=== PATIENT | male | born 1950 | race Two or more races ===

== ENCOUNTER 2024-01-10 17:11 | Inpatient (IN) | payer MEDICARE, MEDICAID ==
[~2024-01-10] VITALS: Ht 177.8 cm; Wt 68.2 kg
[~2024-01-10 17:11] MED LIST: ATOR40TA28 PO; BISA-151 PO; DOCU-385 PO; ERGO500093 PO; FAMO20 PO; HEPA500018 SQ; LEVO750T68 PO; METO25 PO; OLAN5TAB52 PO; POLY17PO47 PO; TAMS0.4C94 PO; VALP250C48 PO
[2024-01-10] MEDS ORDERED: BISA10SU11 PR (19:14)
[2024-01-10] MEDS ORDERED: NA P133E4 PR (19:14)
[2024-01-10] MEDS ORDERED: MAGN-169 PO (19:14)
[2024-01-10] MEDS ORDERED: ACET-2247 PO (19:14)
[2024-01-10] MEDS ORDERED: CHOL25TA4 PO (19:14)
[2024-01-10 19:48] LABS: BASOPHILS % (AUTO) 0.8 % (0.0-2.0); EOSINOPHILS % (AUTO) 2.4 % (1.0-6.0); HEMATOCRIT 40.2 % (41-53); HEMOGLOBIN 13.7 g/dL (13.5-17.5); LYMPHOCYTES # (AUTO) 2.6 K/uL (1.0-4.8); LYMPHOCYTES % (AUTO) 34.1 % (22.0-44.0); MEAN CORPUSCULAR HEMOGLOBIN 31.5 pg (26.0-34.0); MEAN CORPUSCULAR HGB CONC 34.1 G/dL (31.0-37.0); MEAN CORPUSCULAR VOLUME 92 fL (80-100); MONOCYTES # (AUTO) 0.6 K/uL (0.1-1.0); MONOCYTES % (AUTO) 8.2 % (2.0-9.0); NEUTROPHILS # (AUTO) 4.2 K/uL (1.8-7.7); NEUTROPHILS % (AUTO) 54.5 % (40.0-70.0); PLATELET COUNT (AUTO) 265 K/uL (150-450); RED BLOOD CELL COUNT(AUTO) 4.35 MIL/uL (4.50-5.90); RED CELL DISTRIBUTION WIDTH 14.8 % (11.5-14.5); WHITE BLOOD COUNT (AUTO) 7.7 K/uL (4.5-11.0)
[2024-01-10 19:56] LABS: ANION GAP 12 mmol/L (8-16); CALCIUM, TOTAL 8.9 mg/dL (8.8-10.5); CARBON DIOXIDE 25 mmol/L (22-29); CHLORIDE 104 mmol/L (98-107); CREATININE 1.03 mg/dL (0.60-1.30); GLOMERULAR FILTR. RATE CALC > 60 mL/min (>60); GLUCOSE,RANDOM 108 mg/dL (70-110); POTASSIUM 3.7 mmol/L (3.5-5.1); SODIUM SERUM 141 mmol/L (136-145); UREA NITROGEN, BLOOD 30 mg/dL (7-18)
[2024-01-10 23:06] LABS: APPEARANCE,URINE TURBID (CLEAR); BILIRUBIN,URINE NEGATIVE (NEGATIVE); COLOR,URINE YELLOW (YELLOW); GLUCOSE, URINE (UA) NEGATIVE (NEGATIVE); KETONES,URINE NEGATIVE (NEGATIVE); LEUKOCYTE ESTERASE ,URINE LARGE (NEGATIVE); OCCULT BLOOD,URINE LARGE (NEGATIVE); PROTEIN,URINE 100-200,SEE CONFIRM mg/dL (NEGATIVE); SPECIFIC GRAVITIY, URINE 1.019 (1.003-1.030); UROBILINOGEN,URINE <=1.0 mg/dL (<=1.0)
[2024-01-10 23:18] LABS: BACTERIA,URINE Few /HPF (None Seen); NITRATE,URINE NEGATIVE (NEGATIVE); SQUAMOUS EPITHELIAL CELL,UR Few /LPF (None Seen); SULFOSALICYLIC ACID,URINE 2+ (Negative); WBC,URINE 51-100 /HPF (0-5)
[2024-01-10 23:36] LABS: LACTIC ACID 1.5 mmol/L (0.4-2.0)
[2024-01-11] MEDS: SODIUM CHLORIDE 0.9% 1,000 ML IV ONE ×2 (00:48→01:41)
[2024-01-11] MEDS: CefTRIAXone 1 GM/DEXTROSE 50 ML IV ONE (01:08)
[2024-01-11] MEDS ORDERED: ACETAMINOPHEN 325 MG TABLET PO PRN (01:30)
[2024-01-11] MEDS ORDERED: MAGNESIUM HYDROXIDE SUSPENSION 30 ML UDCUP PO PRN (01:30)
[2024-01-11] MEDS ORDERED: ONDANSETRON HCL 4 MG/2 ML VIAL IVP PRN (01:30)
[2024-01-11] MEDS: LORazepam 2 MG/ML VIAL IVP ONE ×2 (01:55→02:40)
[2024-01-11 03:58] VITALS: BP 136/58; PULSE 78; RESP 20; TEMP 97.8; O2SAT 96
[2024-01-11 09:37] VITALS: BP 167/104; PULSE 72; RESP 18; TEMP 98.1; O2SAT 93
[2024-01-11] MEDS: HEPARIN SODIUM,PORCINE 5,000 UNITS/ML VIAL SQ SCH (10:36)
[2024-01-11] MEDS: DOCUSATE SODIUM 100 MG CAPSULE PO SCH (10:36)
[2024-01-11] MEDS: FAMOTIDINE 20 MG TABLET PO SCH (10:36)
[2024-01-11 15:39] VITALS: BP 148/72; PULSE 90; RESP 18; TEMP 99.7; O2SAT 98
[2024-01-11] MEDS: OxyCODONE HCL/ACETAMINOPHEN 5-325 MG TABLET PO PRN (15:53)
[2024-01-11 20:15] VITALS: BP 149/88; PULSE 95; RESP 20; TEMP 98.2; O2SAT 98
[2024-01-12] MEDS: CefTRIAXone 1 GM/DEXTROSE 50 ML IV SCH (01:00)
[2024-01-12 03:42] VITALS: RESP 18
[2024-01-12 05:00] VITALS: BP 148/87; PULSE 76; RESP 18; TEMP 98.5; O2SAT 95
[2024-01-12 08:42] VITALS: BP 164/73; PULSE 77; RESP 20; TEMP 98; O2SAT 97
[2024-01-12] MEDS: CIPROFLOXACIN HCL 250 MG TABLET PO SCH (15:02)
[2024-01-12 16:05] VITALS: BP 118/67; PULSE 63; RESP 18; TEMP 98.7; O2SAT 98
[2024-01-12 19:15] VITALS: BP 120/59; PULSE 60; RESP 19; TEMP 98.1; O2SAT 97
[2024-01-13 05:00] VITALS: BP 131/63; PULSE 68; RESP 19; TEMP 97.7; O2SAT 98
[2024-01-13 08:11] VITALS: BP 114/68; PULSE 65; RESP 19; TEMP 97.8; O2SAT 98
[2024-01-13] MEDS ORDERED: CIPR250T6 PO (11:42)
[2024-01-13 16:50] VITALS: BP 126/64; PULSE 66; RESP 19; TEMP 98.2; O2SAT 99
[2024-01-13 19:32] VITALS: BP 124/57; PULSE 67; RESP 18; TEMP 97.5; O2SAT 99
[2024-01-14 03:52] VITALS: BP 135/57; PULSE 58; RESP 19; TEMP 97.7; O2SAT 99
[2024-01-14 08:06] VITALS: BP 139/69; PULSE 54; RESP 18; TEMP 97.6; O2SAT 99
== END 2024-01-14 08:40 | DRG 690 ==
LOC: EMS 17:11 → EDH 01-11 01:51 → 4E 01-11 03:30
PROVIDERS: ADMIT Internal Medicine; ATTEND Internal Medicine
DX: N13.6 Pyonephrosis (principal); N20.2 Calculus of kidney with calculus of ureter; F20.0 Paranoid schizophrenia; N40.0 Benign prostatic hyperplasia without lower urinary tract symptoms; K21.9 Gastro-esophageal reflux disease without esophagitis; E78.00 Pure hypercholesterolemia, unspecified; I10 Essential (primary) hypertension; K80.20 Calculus of gallbladder without cholecystitis without obstruction; F43.10 Post-traumatic stress disorder, unspecified; Z91.199 Patient's noncompliance with other medical treatment and regimen due to unspecified reason; Z86.73 Personal history of transient ischemic attack (TIA), and cerebral infarction without residual deficits
CPT/HCPCS: 74176; 80048; 81001; 81002; 83605; 85025; 87040; 87086; 87186; 99285; G0378; J0696; J1644; J2060; J7030